=== PATIENT | male | born 1985 | race Hispanic/Latino ===

== ENCOUNTER 2024-07-14 12:07 | Emergency (ER) | payer SELFPAY ==
[2024-07-14] VITALS (8 sets, daily range): BP systolic 97–121; BP diastolic 70–94
[2024-07-14 12:29] LABS: % Eosinophils 0.4 % (0-6); % Immature Granulocytes 0.6 % (0-0.5); % Lymphocytes 41.7 % (20.5-51.1); % Monocytes 5.7 % (1.7-9.3); % Neutrophils 50.6 % (42.2-75.2); Absolute Basophils 0.1 10^3/uL (0-0.2); Absolute Monocytes 0.4 10^3/uL (0.1-0.6); Absolute Neutrophils 3.7 10^3/uL (1.4-6.5); Hematocrit 46.9 % (39.0-52.0); Hemoglobin 16.8 g/dL (13.0-18.0); Mean Corp Hgb Conc. 35.8 g/dL (33.0-37.0); Mean Corpuscular Hgb 31.3 pg (27.0-31.0); Mean Corpuscular Volume 87.5 fL (80.0-94.0); Mean Platelet Volume 9.1 fL (7.4-10.4); Nucleated Red Blood Cells % 0 % (-); Platelet Count 222 10^3/uL (130-400); Red Blood Cell Count 5.36 10^6/uL (4.70-6.10); Red Cell Dist. Width 13.7 % (11.5-14.5); White Blood Cell Count 7.2 10^3/uL (4.8-10.8)
[2024-07-14 13:17] LABS: Urine Albumin 1+ (Neg - Trace); Urine Bilirubin Negative (Negative); Urine Character Clear (Clear); Urine Color Yellow; Urine Glucose Negative (Negative); Urine Ketone Negative (Negative); Urine Leukocyte Negative (Negative); Urine Nitrite Negative (Negative); Urine Occult Blood Negative (Negative); Urine Urobilinogen Negative (Neg - 1+); Urine pH 6.5 (5.0-9.0)
--- NOTE | 2024-07-14 13:34 | ED.GENMED ---
History of Present Illness
General
Chief Complaint: Alcohol Problem
Source: patient and ambulance crew
Exam Limitations: clinical condition
Time Seen by Provider: 07/14/24 13:24
Nursing documentation reviewed up to this point in time: agreed with
History of Present Illness
History of Present Illness:
Middle-aged male with no reported medical history presents to the emergency department via EMS after being found sleeping outside. Patient is refusing to tell us any real name�he provides different names to be from providers initially said his name
was Jonathan then told me his name was , various other times refusing to provide a name. He is also refusing to provide a birthday. He speaks Kosovan only and we did use an automotive [employer] interpreter to speak with him. He says 'thankfully I am okay,
everything is okay.' I spoke to him at length through the automotive [employer] interpreter and I was able to ascertain that he was drinking tequila all day today and he thinks he fell asleep on the ground outside. He says that he does not think that he fell down and
he feels fine. He denies any pain. He says that he has been staying on the street because he does not have a place to stay.
Review of Systems
Review of Systems
All Other Systems: ROS reviewed and negative except as documented in HPI and ROS
Cardiac: Denies chest pain
ABD/GI: Denies abdominal pain or nausea
: Denies flank pain
Musculoskeletal: Denies neck pain or back pain
Neurological: Denies headache
Phy Exam
Physical Exam
Physical Exam:
General: Patient is sitting in bed initially sleeping but easily arousable to voice; he appears disheveled/unkempt and smells of alcohol
Head: Normocephalic, atraumatic
Eyes: Conjunctiva normal, pupils 6 mm and briskly reactive to light bilaterally
Throat: Airway intact, slightly dry mucous membrane
Neck: Trachea midline, no cervical spine tenderness
Back: No signs of trauma to the back or flank and no tenderness of the thoracic or lumbar spine
Lungs: Clear to auscultation bilaterally, no wheezing, rales, rhonchi
Heart: Regular rate and rhythm, no murmurs, gallops, or rubs
Abd: Soft, non distended, nontender
Neuro: No gross deficits
Skin: No lacerations/abrasions or other signs of trauma
Extremities: Atraumatic, warm and well-perfused
Scores
Heart Failure Risk
Heart Failure Risk Score: Not Applicable
Heart Score for Chest Pain Patients
STEMI patient?: Not applicable
Withdrawal Assessment of Alcohol
Withdrawal Assessment Completed?: Not applicable
Course
Orders/Labs/Results
Orders:
Orders
07/14/24 12:14
Electrocardiogram (*1) Urgent
Reason for Study: Chest Pain
EKG- Treatment ONCE
07/14/24 12:15
Complete Blood Count/With Diff Urgent
Urinalysis Reflex To Culture Urgent
Date Specimen was Collected: 07/14/24
Time Specimen was Collected: 12:14
Urine Microscopic Reflex Cult Urgent
07/14/24 12:16
Urine Drug Abuse Screen Urgent
Date Specimen was Collected: 07/14/24
Time Specimen was Collected: 12:14
07/14/24 13:34
Thiamine Injection 100 mg IV NOW STA
07/14/24 13:35
0.9% Sodium Chloride 1000 ml [Nss] 1,000 ml IV BOLUS
07/14/24 13:38
Alcohol Urgent
Basic Metabolic Panel Urgent
07/14/24 13:41
Case Management Consult ONCE
Case Management Consult: Other
Comment: skilled nursing (homeless)
07/14/24 14:00
FOLic ACID [Folvite] 1 mg 0.9% Sodium Chloride 50 ml [Nss] 50 ml IV ONCE
07/14/24 18:08
Alcohol Urgent
Abnormal Lab Results
07/14/24 07/14/24
12:15 13:38
MCH 31.3 H pg
(27.0-31.0)
Immature Gran % 0.6 H %
(0-0.5)
Sodium 148 H mmol/L
(135-145)
Carbon Dioxide 32 H mmol/L
(22-30)
BUN 7 L mg/dl
(9-20)
Creatinine 0.6 L mg/dL
(0.7-1.3)
Urine Albumin (Reflex) 1+ A
(Neg - Trace)
Alcohol, Quantitative 473 H* mg/dl
07/14/24 12:15
07/14/24 13:38
Vital Signs
Initial and Last Documented VS:
Initial Vital Signs
BP
121/94
07/14/24 12:07
Last Documented Vital Signs
Temp Pulse Resp BP Pulse Ox
35.9 C L 87 15 108/83 100
07/14/24 12:21 07/14/24 14:34 07/14/24 14:34 07/14/24 14:34 07/14/24 14:34
MDM/Problems Addressed
Differential Diagnosis Includes:
Alcohol intoxication
MDM/Problems Addressed:
Male of unknown name/age presents to the emergency room after being found sleeping outside. He disclosed to me that he was drinking tequila all day and fell asleep on the ground. He says that he is homeless. He says that he feels fine and does
not have any pain and does not feel that he needs anything. Clinically he is significantly intoxicated. Vitals and exam as above�fortunately he does not seem to have any signs of trauma. Labs were sent in triage including a CBC and a CMP which
are pending, will check alcohol level and urine drug screen. Will provide fluids, thiamine, folate. Discussed with case management for information regarding shelters. Will need to monitor until clinical sobriety.
Labs reviewed: CBC unremarkable�platelets acceptable. BMP marginal hyponatremia otherwise unremarkable. Urinalysis essentially unremarkable. UDS negative. Alcohol level 473 consistent with reported history of alcohol use. Clinical reassessment
patient is improving he is much more awake and although still mildly clinically intoxicated he does appear more sober. He was able to get up and use the bathroom. Provided food by mouth. Unfortunately he is still not willing to tell us his name
and birthday. Case management did come and speak with the patient about shelters and provided him resources including offering to provide a ride directly to skilled nursing. I did speak to the patient at length about his alcohol use and offered resources
for rehab/alcohol cessation but patient declined he says he does not want this at this point. Continue to monitor.
Patient now awake and alert continues to improve clinically he at this point appears essentially clinically sober. He is resting comfortably in the bed ate a full meal. His alcohol level is down to 290 on recheck. I again revisited the
possibility of rehab but he declined. He is requesting to be discharged; will observe here for short period of time further but he is nearing clinical sobriety.
Patient is awake and alert he is walking around the ED with a steady gait. He is speaking in full sentences with no slurring of his speech. Clinically he is sober. He is asking to leave the hospital and at this point in a clinically sober patient
I do not think there is any indication to hold him against his will. We did provide him information for shelters and provided him a ride directly to a skilled nursing. I explained to him that if he changes his mind and wishes to pursue any kind of alcohol
treatment that we are available to help. Throughout his ER visit he refused to give any information about his or birthday.
Chronic conditions affecting care:
Alcohol use
*Pulse Oximetry
Patient hypoxic: no
*Critical Care Note
Total Time (30-74mins, 75-104mins- exclusive of procedures): Not Applicable
Data Reviewed
Source: patient and ambulance crew
Patient Management
Social determinants of health affecting care: Living situation (Homeless), Substance abuse (Alcohol abuse) and Financial situation
ED Attending Note
-
Portions of this chart may have been created with voice recognition software.� Occasional wrong word or��sound alike� substitutions may have occurred due to the inherent limitations of voice recognition software.
Discharge Plan
Departure
Patient Disposition: Home (Routine Discharge)
Date of Disposition: 07/14/24
Time of Disposition: 20:44
Patient with high blood pressure during this ER visit?: Yes
Discharge Problem:
Acute alcohol intoxication
Instructions: Alcohol Use Disorder (DC)
Referrals:
UNKNOWN - PT NOT,INTERVIEWE [Family Provider] -
Interventions
Interventions:
*Risk Screen - Suicide Last Done: 07/14/24 12:21
*General Assessment Last Done: 07/14/24 12:21
*Neglect/Abuse Screening Last Done: 07/14/24 12:21
ED- Neurological Assessment Last Done: 07/14/24 12:55
ED-Psychological Assessment Last Done: 07/14/24 12:55
Discharge Date and Time
Print Language: BELGIAN
[2024-07-14 13:50] LABS: Amphetamines Negative (Negative); Barbiturates Negative (Negative); Benzodiazepines Negative (Negative); Buprenorphine Negative (Negative); Cocaine Negative (Negative); Marijuana Negative (Negative); Methadone Negative (Negative); Methamphetamines Negative (Negative); Opiates Negative (Negative); Phencyclidine Negative (Negative); Tricyclic Antidepressants Negative (Negative)
--- NOTE | 2024-07-14 14:10 | CM ---
Addendum entered by Katherine Zuniga RN 07/14/24 18:18:
CM spoke with bedside RN and charge nurse. Patient is pending medical clearance. Plan for Lyft ride to [facility] when medically ready.
Addendum entered by Katherine Zuniga RN 07/14/24 14:38:
CM was assisted by catalyst unit operator who translated from [place]ian. Patient is refusing to provide staff with his name and address. Patient did confirm that he lives in [place], but would not provide an address. CM will provide transportation assistance
to patient. CM will await patient to be clinically cleared for discharge.
Original Note:
CM was consulted regarding patient's homelessness. Patient is intoxicated at this time. CM will follow.
[2024-07-14 14:18] LABS: Blood Urea Nitrogen 7 mg/dl (9-20); Calcium 8.4 mg/dl (8.4-10.2); Carbon Dioxide 32 mmol/L (22-30); Chloride 104 mmol/L (98-107); Glucose 91 mg/dl (70-99); Sodium 148 mmol/L (135-145); eGFR > 60.00
[2024-07-14] MEDS: FOLVITE 50.2 MG IV (14:28)
[2024-07-14] MEDS: THIAMINE INJECTION 100 MG IV (14:28)
[2024-07-14] MEDS: NSS 1000 IV (14:29)
[2024-07-14 14:36] LABS: Alcohol 473 mg/dl
[2024-07-14 15:02] LABS: Urine Squamous Cell 0-2 /LPF (Few); Urine Urothelial Cell 0-2 /LPF (FEW)
[2024-07-14 15:03] LABS: Urine Amorphous Seen; Urine Red Blood Cell 0-2 /HPF (0-2); Urine White Cell 0-2 /HPF (0-5)
[2024-07-14 18:51] LABS: Alcohol 290 mg/dl
== END 2024-07-14 21:02 | disposition home or self-care (01) ==
LOC: EMR 12:07
PROVIDERS: Emergency Medicine; EMERGENCY PHYSICIAN Emergency Medicine
DX: F10.129 Alcohol abuse with intoxication, unspecified (principal); Z59.00 Homelessness unspecified; Y90.8 Blood alcohol level of 240 mg/100 ml or more; R03.0 Elevated blood-pressure reading, without diagnosis of hypertension
CPT/HCPCS: 99284; 96365; 96375; 80048; 80306; 81003; 81015; 82077; 85025; 93005